=== PATIENT | female | born 1995 | race African-American/Black ===

== ENCOUNTER 2024-11-07 11:25 | Inpatient (IN) | payer MEDICAID, OTHER ==
[~2024-11-07] VITALS: Ht 167.6 cm; Wt 87.1 kg
[2024-11-07] MEDS ORDERED: DERMOPLAST 60ML BOTTLE TOP PRN (11:45)
[2024-11-07] MEDS ORDERED: PHISODERM TOP SOLN 240ML BTL TOP PRN (11:45)
[2024-11-07] MEDS ORDERED: LIDOCAINE 2%HCL (LOCAL ANESTH.) INJ 20ML MDV IJ PRN (11:45)
[2024-11-07] MEDS ORDERED: WITCH HAZEL-GLYCERIN PAD TOP PRN (11:45)
[2024-11-07] MEDS ORDERED: BETAMETHASONE ACET (30mg/5ml) 5ml Vial 6mg/ml ONE (11:56)
[2024-11-07] MEDS ORDERED: MAGNESIUM SULFATE 40MG/ML 1,000 ML IV ONE ×3 (11:57→12:30)
[2024-11-07] MEDS ORDERED: MAGNESIUM SULFATE 100 ML IV ONE (11:57)
[2024-11-07] MEDS ORDERED: MAGNESIUM SULFATE 40MG/ML 1,000 ML IV SCH (12:00)
[2024-11-07] MEDS ORDERED: AMPICILLIN SOD 2GM INJ 2 GM in SODIUM CHL 0.9% 100 ML IV ONE (12:00)
--- NOTE | 2024-11-07 12:16 | DVH ---
LIMITED OB ULTRASOUND > 14 WKS: HISTORY: Spontaneous rupture of membranes. No care. TECHNIQUE: Multiple real-time grayscale images of the gravid uterus with duplex Doppler color flow an d M-mode spectral analysis. COMPARISON: None FINDINGS: IUP single live fetus at 28 weeks 4 days based on composite averages of the BPD, head circumference, abdominal circumference and femur length. Estimated weight 1225 grams. heart rate 147 beats per minute. JERRELL 30.2 cm Cervix is not well visualized. Cephalic presentation Grade 2 placenta without previa or abruption, in anterior position. IMPRESSION: 1. IUP single live fetus at 28 weeks 4 days AUA corresponding to an CLAUDETTE of 01/26/2025. 2. Amniotic fluid index measures 30.2 cm.
[2024-11-07 12:23] LABS: Basophils # (auto) 0 10 ^3/uL (0-0.2); Basophils % (auto) 0.3 % (0.0-2.0); Eosinophils # (auto) 0.2 10 ^3/uL (0-0.8); Eosinophils % (auto) 1.6 % (0.0-7.0); Hematocrit 36.7 % (36.0-46.0); Hemoglobin 13.2 g/dL (12.2-16.2); Lymphocytes # (auto) 2.4 10 ^3/uL (0.4-5.4); Lymphocytes % (auto) 19.1 % (10.0-50.0); Mean Corpuscular Hgb Conc. 35.9 g/dL (32.0-36.0); Mean Corpuscular Volume 83.5 fL (80.0-100.0); Monocytes # (auto) 0.8 10 ^3/uL (0-1.3); Monocytes % (auto) 6.6 % (0.0-12.0); Neutrophils # (auto) 8.9 10 ^3/uL (1.6-8.6); Neutrophils % (auto) 72.4 % (37.0-80.0); Nucleated Red Blood Cells % 0.3 %; Platelet Count (auto) 274 10^3/uL (140-450); Red Blood Cells 4.39 10^6/uL (4.0-5.20); Red Cell Distribution Width 13.8 % (11.8-14.3); White Blood Cell 12.3 10^3/uL (4.4-10.8)
[2024-11-07 12:25] LABS: Urine Bacteria None Seen /hpf (None Seen)
[2024-11-07] MEDS: BETAMETHASONE ACET (30mg/5ml) 5ml Vial 6mg/ml IM ONE (12:28)
[2024-11-07] MEDS: LACTATED RINGER'S 1,000 ML IV SCH (12:29)
[2024-11-07] MEDS: MAGNESIUM SULFATE 100 ML IV ONE (12:29)
[2024-11-07 12:34] LABS: Urine Blood Negative /uL (Negative); Urine Clarity Clear (Clear); Urine Color Yellow (Yellow); Urine Mucus FEW (None Seen); Urine Protein, UAD 1+ (Negative); Urine Specific Gravity 1.022 (1.001-1.035); Urine Squamous Epithelial Cell FEW /hpf (<5); Urine Urobilinogen 2 mg/dL (Negative); Urine WBC 4 /HPF (0-5)
[2024-11-07 12:35] LABS: Fern Testing Positive
[2024-11-07 12:43] LABS: INR 0.93 (0.9-1.15); Partial Thromboplastin Time 25.9 SEC (24.5-34.5); Prothrombin Time 9.9 sec (9.3-11.8)
[2024-11-07 12:44] LABS: Alanine Aminotransferase 25 U/L (7-40); Albumin 4.3 g/dL (3.2-4.8); Anion Gap 7 (5-15); Aspartate Aminotransferase 17 U/L (13-40); BUN/Creatinine Ratio 9.3 (10.0-20.0); Bilirubin, Total 0.8 mg/dL (0.2-1.0); Blood Urea Nitrogen < 5 mg/dL (9-23); Carbon Dioxide 25 mmol/L (20-31); Chloride 103 mmol/L (98-107); Glucose 59 mg/dL (74-106); Potassium 3.7 mmol/L (3.5-5.1); Sodium 135 mmol/L (136-145); Total Protein 6.9 g/dL (5.7-8.2)
[2024-11-07 12:45] LABS: Alkaline Phosphatase 119 U/L (46-116)
[2024-11-07 12:47] LABS: Amphetamine Screen, Urine Neg (NEGATIVE); Barbiturate Scree,Urine Neg (NEGATIVE); Benzodiazephine Screen, Urine Neg (NEGATIVE); Cannabinoid Screen, Urine Pos (NEGATIVE); Cocaine Screen, Urine Neg (NEGATIVE); Opiate Scree,Urine Neg (NEGATIVE); Phencyclidine Screen, Urine Neg (NEGATIVE)
--- NOTE | 2024-11-07 15:46 | DVHDS2 ---
Physician Discharge Progress N Final Diagnosis: iup at 27wks with pprom no care thc use in preg polyhydramnia Operations or Procedures: Operations or Procedures nst,sono, 27wks Other Interventions Other Interventions pt seen by maber Condition on Discharge: Higher Level of Care Disposition: Acute Care Facility Discharge Instructions: Diet: Regular, See Comment Activity: Bed rest Follow Up/Referral: Transfer to Higher Level of care Medications: na Follow Up Care: Specialist: to [facility] Discharge Statement: "Patient was advised to return to the ER or call 911 if any headaches, dizziness, shortness of breath, chest pain, abdominal pain, bleeding, fevers, or worsening of medical condition. Patient was counseled about treatment plan, medications, possible side effects, patientverbalized understanding. All questions were answered to the best of my ability. This discharge took greater then 30 minutes in planning, reviewing documentation, counseling the patient, and discussing with other team members." Visit Coding OBGYN Date of Service: Nov 07, 2024 Billing Provider: ANNE SMITH DO HAND CARVER Common Visit Codes: 78563-BBI/OBS DISCH DAY >30MIN HAND CARVER Consultation Codes: 05377-[id number] CONSULT <80MIN HAND CARVER Procedure Codes: 21902-74- NON-STRESS TEST ANNE SMITH DO Nov 07, 2024 15:46
--- NOTE | 2024-11-07 15:50 | DVHTS ---
Transfer Summary Transfer Summary Date of Admission Nov 07, 2024 at 11:25 Date of Transfer: Nov 07, 2024 Transfer Diagnosis pprom,27wks iup,no care,drug use in preg,polyhydramnia Brief Hx & Hospital Course: pt is admitted for pprom,poly ,no vag bleeding and no care Transfer to: [facility] Discharge Instructions: via air Transfer Status stable Visit Coding OBGYN Date of Service: Nov 07, 2024 Billing Provider: ANNE SMITH DO PATIENT ADVOCATE Common Visit Codes: 73222-SUT/OBS SAME DATE (HIGH), 02993-SBM/OBS DISCH DAY >30MIN PATIENT ADVOCATE Consultation Codes: 65780-M/U INPATIENT CONSULT (HIGH) PATIENT ADVOCATE Procedure Codes: 00078-90- NON-STRESS TEST ANNE SMITH DO Nov 07, 2024 15:50
--- NOTE | 2024-11-07 15:54 | DVHHP2 ---
OB CC & HPI Date Date of Admission: Nov 07, 2024 Patient Identification: : 1 Para: 0 EGA: 27wks Chief Complaints: Reason for admission: rupture of membranes Admission Nurse Assessment Rev: No History of Present Complaints pt is admitted for pprom,no vag bleeding ,no care and pos for drug use Past Medical History Cardiac: No pertinent Hx Pulmonary: No pertinent Hx Central Nervous System: No pertinent Hx GI: No pertinent Hx Hemotology/Oncology: No pertinent Hx Hepatobiliary: No pertinent Hx Psychiatric: No pertinent Hx Musculoskeletal: No pertinent Hx Rheumotologic: No pertinent Hx Infectious Disease: No peritnent Hx ENT: No pertinent Hx Renal/: No pertinent Hx Endocrine: No pertinent Hx Dermatology: No pertinent Hx Past Surgical History: No pertinent Hx OB History OB History Care: None Ultrasounds: No ultrasounds Obstetrical Complications: None Medical Complications: None Allergies: Coded Allergies: NO KNOWN ALLERGIES (Unverified , 11/07/24) Current Medications Current Medications Medications (Trade) Dose Ordered Sig/Raven Route PRN Reason Start Time Stop Time Status Last Admin Lactated Ringer's 1,000 ml @ 125 mls/hr Q8H IV 11/07/24 11:45 11/07/24 13:39 DC 11/07/24 12:29 Witch Kandace (Tucks) 1 pad PRN PRN TOP PERINEAL AREA DISCOMFORT 11/07/24 11:45 11/07/24 13:39 DC Sodium Lauryl Sulfate (Phisoderm) 240 ml PRN PRN TOP PERINEAL AREA DISCOMFORT 11/07/24 11:45 11/07/24 13:39 DC Benzocaine (Dermoplast) 1 applic PRN PRN TOP PERINEAL AREA DISCOMFORT 11/07/24 11:45 11/07/24 13:39 DC Lidocaine HCl (Xylocaine) 20 ml ONCE PRN IJ PERINEAL AREA DISCOMFORT 11/07/24 11:45 11/07/24 13:39 DC Magnesium Sulfate 1,000 ml @ 50 mls/hr Q20H IV 11/07/24 12:00 11/07/24 13:39 DC Family & Social History Family/Social History Blood Type: Unknown Rubella: unknown RPR/VDRL: Unknown GBS Status: Unknown HBsAG: Unknown Review of Systems Constitutional: No symptom reported Ears, Nose, & Throat: No symptom reported Eyes: No symptom reported Pulmonary/Respiratory: No symptom reported Cardiovascular: No symptom reported Gastrointestinal: No symptom reported Genitourinary: No symptom reported Musculoskeletal: No symptom reported Skin: No symptom reported Psychiatric: No symptom reported Endocrine: No symptom reported Hemotologic/Lymphatic: No symptom reported OB Admission Exam Physical Exam HEENT: TMs Normal, Fontanelles Normal, Nasal Mucosa Normal, Eyes non-injected, Oropharynx Normal, PERRLA, Moist Membranes, EOMI Heart: Rhythm Normal Lungs: Clear Abdomen: Non tender Extremities: Normal Reflexes: Normal Cervical Dilatation: 3cm Effacement: 50% Station: -2 Membranes: Ruptured Amniotic Fluid: Thin Meconium Heart Rate: 130's Accelerations: Accelerations Present Decelerations: No Decelerations Short Term Variability: Present Chcf Variability: Average (6-25) Contractions on Admission: >10 Minutes Apart Intensity: Mild OB Plan Plan Admitting Diagnosis: iup at 27 wks with PPROM polyhydramnia no care drug use Plan: Other Other Plan: transfer to [facility],dr lopez acce[pted the transfer ,dr ponce will manage ivf ,iv abx and celestone given Visit Coding OBGYN Date of Service: Nov 07, 2024 Billing Provider: ANNE SMITH DO WASHING MACHINE REPAIRER Common Visit Codes: 10671-ZDK/OBS SAME DATE (HIGH) WASHING MACHINE REPAIRER Consultation Codes: 18708-[id number] CONSULT <80MIN WASHING MACHINE REPAIRER Procedure Codes: 73065-48- NON-STRESS TEST ANNE SMITH DO Nov 07, 2024 15:54
[2024-11-08 08:07] LABS: RPR Non Reactive (Non Reactive)
== END 2024-11-07 13:05 | disposition short-term general hospital (02) | DRG 566 ==
LOC: OBSVTOIN 11:25 → LDRP 11:25
PROVIDERS: ADMIT Obstetrics & Gynecology; ATTEND Obstetrics & Gynecology
DX: O42.912 Preterm premature rupture of membranes, unspecified as to length of time between rupture and onset of labor, second trimester (principal); O99.322 Drug use complicating pregnancy, second trimester; O40.2XX0 Polyhydramnios, second trimester, not applicable or unspecified; F12.90 Cannabis use, unspecified, uncomplicated; Z3A.27 27 weeks gestation of pregnancy
CPT/HCPCS: 36415; 59025; 76805; 80053; 80307; 81001; 81002; 84112; 85025; 85610; 85730; 86592; 86703; 86762; 86780; 86803; 86850; 86900; 86901; 87340; 96360; 96361; 96365; 96372; G0378